=== PATIENT | male | born 1970 | race Caucasian/White ===

== ENCOUNTER 2019-09-07 09:30 | Outpatient (CLI) | payer SELFPAY ==
[2019-09-08 08:02] LABS: COVID-19 RT-PCR UVMMC Result Negative (Negative)
== END 2019-09-07 09:50 ==
PROVIDERS: PCP Nurse Practitioner Family; Visit Provider Nurse Practitioner Family
DX: Z11.59 Encounter for screening for other viral diseases (principal)
CPT/HCPCS: U0003

== ENCOUNTER 2020-11-15 15:54 | Outpatient (CLI) | payer SELFPAY ==
[2020-11-15 16:41] LABS: FREE T4 1.58 ng/dL (0.76-1.46); TSH 0.01 uIU/mL (0.36-3.74)
[2020-11-17 13:13] LABS: Thyroglobulin Antibody <1.8 IU/mL (<1.8); Thyroglobulin Tumor Marker 0.6 ng/mL
== END 2020-11-15 15:55 | disposition home or self-care (01) ==
LOC: LBO 15:56
PROVIDERS: PCP Nurse Practitioner Family; Visit Provider Internal Medicine Endocrinology, Diabetes & Metabolism
DX: C73 Malignant neoplasm of thyroid gland (principal)
CPT/HCPCS: 36415; 84432; 84439; 84443; 86800

== ENCOUNTER 2020-12-15 02:39 | Outpatient (CLI) | payer SELFPAY ==
[2020-12-15 12:18] LABS: FREE T4 1.39 ng/dL (0.76-1.46); TSH 0.11 uIU/mL (0.36-3.74)
== END 2020-12-15 02:40 | disposition home or self-care (01) ==
LOC: LBO 02:39
PROVIDERS: PCP Nurse Practitioner Family; Visit Provider Internal Medicine Endocrinology, Diabetes & Metabolism
DX: C73 Malignant neoplasm of thyroid gland (principal)
CPT/HCPCS: 36415; 84439; 84443

== ENCOUNTER 2021-09-11 01:39 | Outpatient (CLI) | payer SELFPAY ==
[2021-09-11 13:58] LABS: FREE T4 1.26 ng/dL (0.76-1.46); TSH 0.64 uIU/mL (0.36-3.74)
== END 2021-09-11 01:40 | disposition home or self-care (01) ==
LOC: LBO 01:42
PROVIDERS: PCP Nurse Practitioner Family; Visit Provider Internal Medicine Endocrinology, Diabetes & Metabolism
DX: C73 Malignant neoplasm of thyroid gland (principal); E89.0 Postprocedural hypothyroidism
CPT/HCPCS: 36415; 84439; 84443

== ENCOUNTER 2022-12-20 17:08 | Outpatient (CLI) | payer SELFPAY ==
[2022-12-20 14:22] LABS: Hemoglobin A1C 6.7 % (<5.7)
[2022-12-20 14:40] LABS: TSH 0.03 uIU/mL (0.36-3.74)
== END 2022-12-20 17:09 | disposition home or self-care (01) ==
LOC: LBO 17:09
PROVIDERS: PCP Nurse Practitioner Family; Visit Provider Internal Medicine Endocrinology, Diabetes & Metabolism
DX: R63.5 Abnormal weight gain (principal)
CPT/HCPCS: 36415; 83036; 84443

== ENCOUNTER 2023-09-19 01:56 | Outpatient (CLI) | payer SELFPAY ==
[2023-09-19 12:03] LABS: Hemoglobin A1C 6.5 % (<5.7)
[2023-09-19 12:40] LABS: FREE T4 1.57 ng/dL (0.76-1.46); TSH 0.01 uIU/Ml (0.36-3.74)
== END 2023-09-19 01:57 | disposition home or self-care (01) ==
LOC: LBO 01:56
PROVIDERS: Visit Provider Internal Medicine Endocrinology, Diabetes & Metabolism
DX: C73 Malignant neoplasm of thyroid gland (principal)
CPT/HCPCS: 36415; 83036; 84439; 84443

== ENCOUNTER 2023-12-30 16:03 | Outpatient (CLI) | payer SELFPAY ==
[2023-12-30 15:20] LABS: FREE T4 1.71 ng/dL (0.76-1.46); TSH 0.11 uIU/Ml (0.36-3.74)
== END 2023-12-30 16:04 | disposition home or self-care (01) ==
LOC: LBO 16:16
PROVIDERS: Visit Provider Internal Medicine Endocrinology, Diabetes & Metabolism
DX: E03.9 Hypothyroidism, unspecified (principal)
CPT/HCPCS: 36415; 84439; 84443

== ENCOUNTER 2024-10-29 22:30 | Outpatient (CLI) | payer SELFPAY ==
[2024-10-29 17:58] LABS: TSH 20.15 uIU/mL (0.36-3.74)
[2024-10-29 18:15] LABS: FREE T4 < 0.10 ng/dL (0.76-1.46)
== END 2024-10-29 22:31 | disposition home or self-care (01) ==
LOC: LBO 22:33
PROVIDERS: Visit Provider Internal Medicine Endocrinology, Diabetes & Metabolism
DX: C73 Malignant neoplasm of thyroid gland (principal)
CPT/HCPCS: 36415; 84439; 84443